=== PATIENT | male | born 1960 | race Caucasian/White ===

== ENCOUNTER 2020-11-12 17:14 | Emergency (ER) | payer BC ==
[~2020-11-12] VITALS: Ht 177.8 cm; Wt 100.2 kg
[2020-11-12 17:21] VITALS: BP_SYST 154
[2020-11-12] MEDS ORDERED: ceFAZolin SODIUM 1 GM VIAL ONE (20:44)
[2020-11-12] MEDS ORDERED: DIPH-TET-PERTUS Vaccine 0.5 ML VIAL (ADACEL) I.M. ONE (20:45)
[2020-11-12] MEDS ORDERED: ceFAZolin SODIUM 2 GM in D5W 100 ML IV ONE (20:45)
[2020-11-12] MEDS ORDERED: HYDROcodone/ACETAMIN 5-325 MG TAB (NORCO/ VICODIN) PO ONE (22:15)
[2020-11-12] MEDS ORDERED: CEPH250C PO (22:17)
[2020-11-12] MEDS ORDERED: HYDR-3917 PO (22:17)
[2020-11-12 22:24] VITALS: BP_SYST 154
== END 2020-11-12 22:24 | disposition home or self-care (01) ==
LOC: SED 17:14
DX: S62.320A Displaced fracture of shaft of second metacarpal bone, right hand, initial encounter for closed fracture (principal); I10 Essential (primary) hypertension; Z79.899 Other long term (current) drug therapy; W21.89XA Striking against or struck by other sports equipment, initial encounter; Y93.53 Activity, golf; Y92.89 Other specified places as the place of occurrence of the external cause; Y99.8 Other external cause status
CPT/HCPCS: 29125; 73130; 90471; 90715; 96365; 99284; J0690